=== PATIENT | male | born 1980 | race Caucasian/White ===

== ENCOUNTER 2021-03-20 14:47 | Emergency (ER) | payer BC ==
[~2021-03-20] VITALS: Ht 177.8 cm; Wt 113.0 kg
[2021-03-20 14:58] VITALS: BP 129/75
[2021-03-20] MEDS ORDERED: HYDR-3965 PO (16:05)
[2021-03-20] MEDS ORDERED: ondansetron 4mg rapidly disintigrating tab PO ONE (16:05)
[2021-03-20] MEDS ORDERED: HYDROcodone/acetaminophen 5mg/325mg tablet PO ONE (16:05)
[2021-03-20] MEDS ORDERED: ONDA4TAB6 PO (16:05)
== END 2021-03-20 16:46 | disposition home or self-care (01) ==
LOC: ER 14:47
DX: S62.111A Displaced fracture of triquetrum [cuneiform] bone, right wrist, initial encounter for closed fracture (principal); M25.531 Pain in right wrist; Z98.890 Other specified postprocedural states; Z79.899 Other long term (current) drug therapy; X58.XXXA Exposure to other specified factors, initial encounter; Y93.89 Activity, other specified; Y92.89 Other specified places as the place of occurrence of the external cause; Y99.8 Other external cause status
CPT/HCPCS: 29125; 73110; 99283

== ENCOUNTER 2021-05-20 11:51 | Emergency (ER) | payer BC ==
[~2021-05-20] VITALS: Ht 177.8 cm; Wt 109.1 kg
[~2021-05-20 11:51] MED LIST: ONDA4TAB6 PO
[2021-05-20 12:01] VITALS: BP 140/92
[2021-05-20] MEDS ORDERED: TETanus/Pertussis (Acell)/Diphther VAC/PF (Tdap-Adult) 0.5ml syringe IMVAC ONE (12:30)
[2021-05-20] MEDS ORDERED: LIDOcaine 1% W/epiNEPHrine 1:200,000 10ml vial IJ ONE (12:30)
[2021-05-20] MEDS ORDERED: CEPH-585 PO (13:49)
== END 2021-05-20 14:02 | disposition home or self-care (01) ==
LOC: ER 11:52
DX: S20.452A Superficial foreign body of left back wall of thorax, initial encounter (principal); X58.XXXA Exposure to other specified factors, initial encounter; Y93.89 Activity, other specified; Y92.89 Other specified places as the place of occurrence of the external cause; Y99.8 Other external cause status
CPT/HCPCS: 10120; 73010; 90471; 90715; 99284

== ENCOUNTER 2024-11-21 09:34 | Emergency (ER) | payer OTHER, BC ==
[~2024-11-21] VITALS: Ht 177.8 cm; Wt 110.5 kg
[2024-11-21 09:43] VITALS: BP 138/90; PULSE 89
[2024-11-21] MEDS ORDERED: ERYT1OIN6 RIGHTEYE (10:21)
[2024-11-21 10:37] VITALS: RESP 17; TEMP 97.7; O2SAT 99
== END 2024-11-21 10:39 | disposition home or self-care (01) ==
LOC: ER 09:35
DX: H00.011 Hordeolum externum right upper eyelid (principal); Z98.890 Other specified postprocedural states
CPT/HCPCS: 99283